=== PATIENT | male | born 1980 | race Caucasian/White ===

== ENCOUNTER → 2018-10-07 | Outpatient (REF) | payer OTHER ==
--- NOTE | 2018-10-07 11:15 | RADIOLOGY IMAGING REPORT ---
FACILITY: [facility] - [place] PATIENT NAME: Ag Awad : 1980 MR: [id number] V: [id number] EXAM DATE: ORDERING PHYSICIAN: HIWOT SORTO TECHNOLOGIST: Location: [facility] [place] Patient: Ag Awad : 1980 Visit/Account:[id number] Date of Sevice: 10/07/2018 CHEST SINGLE AP History: Employment physical FINDINGS: Comparison studies: None. Tubes and Lines: None. Lungs and pleura: Well aerated. No evidence of focal consolidation or pleural effusions. Mediastinum: normal. Cardiac silhouette: normal . Osseous structures: Unremarkable for age . IMPRESSION: Normal chest Report Dictated By: Chaparro Mishra MD at 10/07/2018 11:09 AM Report E-Signed By: Chaparro Mishra MD at 10/07/2018 11:09 AM WSN:[email or web address]
== END ==
LOC: RAD 10:45 → EDSTATUS 11-25 16:18
PROVIDERS: ATTEND Physician Assistant
DX: Z02.89 Encounter for other administrative examinations (principal)
CPT/HCPCS: 71045